=== PATIENT | female | born 1940 | race Caucasian/White ===

== ENCOUNTER 2017-12-25 09:00 | Inpatient (IN) ==
[2017-12-18 16:45] LABS: Appearance,Urine CLEAR; Bacteria,Urine 0 /hpf (0); Bilirubin,Urine NEG (NEG); Color,Urine YELLOW; Glucose,Urine (UA) NEGATIVE (NEG); Leukocyte Esterase,Urine NEG /uL (NEG); Mucus,Urine MOD /hpf (0); Protein,Urine 30 mg/dL (NEG); Specific Gravity,Urine 1.025 (1.000-1.035); Urine Blood NEG mg/dL (<0.03); Urine RBC 5 /hpf (0-1); Urine Squamous Epithelial Cell 2 /hpf (0-4); Urine Transitional Epi Cells 1 /hpf (0-2); Urine WBC 2 /hpf (0-4)
[2017-12-18 17:35] LABS: Blood Urea Nitrogen 25 mg/dl (8-23)
[2017-12-18 18:24] LABS: Basophils # (Auto) 0 K/mcL (0.0-0.3); Basophils % (Auto) 0.5 % (0.0-2.0); Eosinophils # (Auto) 0.1 K/mcL (0.0-0.7); Eosinophils % (Auto) 1.7 % (0.0-7.0); Granulocytes % (Auto) 75.7 % (38.0-78.0); Lymphocytes % (Auto) 12.5 % (15.5-49.0); Mean Cell Volume 79.2 fL (80.0-100.0); Mean Corpuscular HGB Conc 32.2 g/dL (31.0-36.0); Mean Corpuscular Hemoglobin 25.6 pg (26.0-34.0); Monocytes # (Auto) 0.8 K/mcL (0.1-0.9); Monocytes % (Auto) 9.6 % (1.0-12.0); Platelet Count 390 K/mcL (140-440); RBC 4.51 M/mcL (4.00-5.20); Red Cell Distribution Width 16.4 % (11.5-14.5)
[2017-12-18 19:28] LABS: Estimated Average Glucose(eAG) 151 mg/dL; Hemoglobin A1C 6.9 % HGB (4.0-6.0)
[~2017-12-25 09:00] MED LIST: CELECOXIB 200 MG CAPSULE PO SCH; PREGABALIN 75 MG CAPSULE PO SCH; oxyCODONE 10 MG TAB.ER.12H PO SCH
[2017-12-25] MEDS: 0.9 % SODIUM CHLORIDE 9 ML, KETOROLAC 30 MG, ROPIVACAINE HCL/PF 49.5 ML, EPINEPHrine 0.... IJ SCH ×2 (10:40→18:03)
[2017-12-25] MEDS: ceFAZolin 1 GM VIAL IV SCH ×3 (10:41→21:03)
[2017-12-25] MEDS ORDERED: PROPOFOL 200 MG/20 ML VIAL IV ONE (12:50)
[2017-12-25] MEDS ORDERED: PHENYLEPHRINE 10 MG/ML VIAL IV ONE (12:50)
[2017-12-25] MEDS ORDERED: MIDAZOLAM 5 MG/5 ML VIAL IV ONE (12:50)
[2017-12-25] MEDS ORDERED: GLYCOPYRROLATE 0.2 MG/ML VIAL IV ONE (12:50)
[2017-12-25] MEDS ORDERED: TRANEXAMIC ACID 1,000 MG/10 ML VIAL IV ONE ×2 (12:50→15:05)
[2017-12-25] MEDS ORDERED: LIDOCAINE HCL/PF 100 MG/5 ML SYRINGE IV ONE (12:50)
[2017-12-25] MEDS ORDERED: fentaNYL 100 MCG/2 ML VIAL IV ONE (12:50)
[2017-12-25] MEDS ORDERED: ONDANSETRON 4 MG/2 ML VIAL IV ONE (12:50)
[2017-12-25] MEDS ORDERED: diphenhydrAMINE 50 MG/ML VIAL IV PRN (13:59)
[2017-12-25] MEDS ORDERED: IPRATROPIUM/ALBUTEROL 3 ML AMPUL.NEB NEB PRN (13:59)
[2017-12-25] MEDS ORDERED: ACETAMINOPHEN 1,000 MG/100 ML BOTTLE IV ONE (13:59)
[2017-12-25] MEDS ORDERED: METOPROLOL TARTRATE 5 MG/5 ML VIAL IV PRN (13:59)
[2017-12-25] MEDS ORDERED: ATROPINE SULFATE 0.4 MG/ML VIAL IV PRN (13:59)
[2017-12-25] MEDS ORDERED: ePHEDrine 50 MG/ML AMPUL IV PRN (13:59)
[2017-12-25] MEDS ORDERED: FLUMAZENIL 0.1 MG/ML ML IV PRN (13:59)
[2017-12-25] MEDS ORDERED: MEPERIDINE 25 MG/ML SYRINGE IV PRN (13:59)
[2017-12-25] MEDS ORDERED: fentaNYL 100 MCG/2 ML VIAL IV PRN (13:59)
[2017-12-25] MEDS ORDERED: PROMETHAZINE 25 MG/ML VIAL IV PRN (13:59)
[2017-12-25] MEDS ORDERED: HYDROmorphone 2 MG/ML VIAL IV PRN (13:59)
[2017-12-25] MEDS ORDERED: ONDANSETRON 4 MG/2 ML VIAL IV PRN ×2 (13:59→14:26)
[2017-12-25] MEDS ORDERED: METHOCARBAMOL 1,000 MG/10 ML VIAL IV PRN (13:59)
[2017-12-25] MEDS ORDERED: NALOXONE HCL 0.4 MG/ML VIAL IV PRN (13:59)
[2017-12-25] MEDS ORDERED: LACTATED RINGERS 1,000 ML IV SCH (14:00)
--- NOTE | 2017-12-25 14:25 | Brief Operative Note ---
Date of procedure: 12/25/17 Pre-op diagnosis: R knee OA Post-op diagnosis: same Procedure: Right robotic assisted total knee arthroplasty Grafts/Implants: Yes Anesthesia: spinal, GLMA Findings: severe DJD Complications: none Surgeon: Tobias Barron Medical Superintendent: Iftikhar Camacho Estimated blood loss (cc): 30 Specimens Removed/Pathology: none sent Condition: stable Disposition: PACU
[2017-12-25] MEDS ORDERED: BISACODYL 10 MG SUPP.RECT PR PRN (14:26)
[2017-12-25] MEDS ORDERED: MAGNESIUM HYDROXIDE 30 ML ORAL.SUSP PO PRN (14:26)
[2017-12-25] MEDS ORDERED: TRANEXAMIC ACID 1,000 MG/10 ML VIAL IV SCH (14:26)
[2017-12-25] MEDS ORDERED: BENZOCAINE/MENTHOL 1 LOZENGE PO PRN (14:26)
[2017-12-25] MEDS ORDERED: FLEETS ADULT ENEMA PR PRN (14:26)
[2017-12-25] MEDS ORDERED: POLYETHYLENE GLYCOL 3350 17 GM PACKET PO PRN (14:26)
[2017-12-25] MEDS ORDERED: DEXTROSE 50% 50 ML VIAL IV PRN (14:30)
[2017-12-25] MEDS ORDERED: DEXTROSE 31 GM ORAL.SUSP PO PRN (14:30)
--- NOTE | 2017-12-25 15:09 | Operative Note ---
DATE OF OPERATION: 12/25/2017 PREOPERATIVE DIAGNOSIS: Right knee advanced osteoarthritis. POSTOPERATIVE DIAGNOSIS: Right knee advanced osteoarthritis. PROCEDURE PERFORMED: Right robotic-assisted total knee arthroplasty placing a Tae triathlon size 3 cruciate retaining femoral component, size 2 tibial baseplate with a 9 mm X3 tibial insert and a 33 mm patellar button. SURGEON: Tobias Barron MD [facility] DIRECTOR: Kana Camacho PA-C. ANESTHESIA: Spinal plus general. DRAINS: None. SPECIMENS: Bone cuts, which were discarded. BLOOD LOSS: 30 mL POSTOPERATIVE CONDITION: Stable. INDICATIONS FOR SURGERY: This is a 77-year-old female with worsening right knee pain. Radiographs showed [id number] arthritis. FINDINGS AT SURGERY: Showed [id number] arthritis with a severely degenerative torn medial meniscus. Post-procedure showed good limb alignment, patellar tracking, and joint stability. PROCEDURE IN DETAIL: The patient had been seen preoperatively. Informed consent had been obtained after discussion of risks, benefits of surgery. Risks including, but not limited to, bleeding, possibly requiring transfusion; infection, possibly requiring implant removal and prolonged IV antibiotics; injury to nerves, blood vessels, and other surrounding structures; anesthetic risks; incomplete or no resolution of symptoms; stiffness; pain; instability; DVT and pulmonary embolus risks; and the possibility of needing further revision surgery. She understood these risks and wished to proceed. Correct operative site was marked and the patient was taken to the operating room after spinal anesthesia was given. LMA general was given. The right lower extremity was then carefully prepped and draped in normal sterile fashion. A timeout was performed verifying patient name, operative site, and plan. Esmarch was used to exsanguinate the extremity and tourniquet was inflated. Midline incision was made with a scalpel through skin and subcutaneous tissue. IrriSept was irrigated and a medial parapatellar arthrotomy made. Subperiosteal exposure was done of the anterior medial tibia. Anterior horns of menisci were removed and the medial meniscus was noted to be severely torn. ACL was transected. Femoral and tibial checkpoints were placed. Two stab incisions were made over the tibia and two over the femur and bicortical pins placed and the arrays connected. We checked our hip center of rotation and then green probe used to identify medial and lateral malleoli and double check points. Blue probe was used to do our mapping. We then removed osteophytes and checked our flexion, extension gaps. Implants were adjusted so we had 17 mm gaps for all 4 numbers. We then used the robotic assistance to make our bone cuts. The tibia was sized to a 2, which was externally rotated as bone coverage would allow. The tibia was prepared and then posterior osteophytes removed. Trial components were placed and the knee was taken through range of motion and had good stability. The patella was measured and then freehand resected, sized to a 33 and post-resection showed within a millimeter within the implant trial. We went ahead and checked patellar tracking, which was good. We then opened implants. Trials were removed and antibiotic cement was mixed. We irrigated with IrriSept, after a minute pulse lavaged with saline and then used CO2 gun to clean the cancellous bone surfaces and then cemented the tibia followed by the femur and then a 9 insert trial placed. The knee was taken into extension. The patella was cemented. The joint was filled with IrriSept. We removed our checkpoints and removed our pins and arrays. We injected pain cocktail in the pericapsular and subcutaneous tissues. The leg was held in full extension until cement had fully hardened. We flexed the knee up, removed the trial and opened a 9 insert. We injected pain cocktail in the posterior capsule, then irrigated IrriSept and then impacted the 9 insert. We pulse lavaged with saline and then the knee was closed in 45 degrees of flexion. Interrupted [id number] #2 FiberWires were used around the superior quadrant of the patella, interrupted #1 Vicryl [id number] around the inferior quadrant, running #1 Vicryl for patellar tendon and quad tendon. Checkpoints had been removed prior to closure. Final IrriSept irrigation was done and then final pulse lavage and 2-0 Monocryl for subcutaneous and sadie for skin. Xeroform and sterile dressing applied. Tourniquet was released. The patient was awakened, extubated and transferred to recovery in stable condition. MORGAN:naren Job ID: [id number] Doc ID: [id number] Tobias Barron MD
--- NOTE | 2017-12-25 15:41 | XRay Report ---
HISTORY: Postop knee replacement FINDINGS: There is a well positioned total knee prosthesis. No fracture is present. Moderate amount of calcified plaque is present in the superficial femoral and popliteal arteries. IMPRESSION: Well-positioned right knee prosthesis Interpreted and Authenticated by: Albino Erwin 12/25/17
[2017-12-25] MEDS: 0.9 % SODIUM CHLORIDE 1,000 ML IV SCH (15:51)
[2017-12-25] MEDS: KETOROLAC 15 MG/ML VIAL IV SCH ×2 (18:00→23:49)
[2017-12-25] MEDS: INSULIN LISPRO 1 UNIT/0.01 ML UNIT SQ SCH ×2 (18:24→21:20)
[2017-12-25] MEDS ORDERED: SENNOSIDES 1 TABLET PO SCH (21:00)
[2017-12-25] MEDS: ASPIRIN 325 MG ENTERIC COATED TABLET PO SCH (21:02)
[2017-12-25] MEDS: DOCUSATE SODIUM 100 MG CAPSULE PO SCH (21:02)
[2017-12-25] MEDS: 0.9 % SODIUM CHLORIDE 10 ML SYRINGE IV SCH ×2 (21:06→21:13)
[2017-12-26] MEDS: 0.9 % SODIUM CHLORIDE 1,000 ML IV SCH (02:30)
[2017-12-26] MEDS: ceFAZolin 1 GM VIAL IV SCH (04:26)
[2017-12-26] MEDS: oxyCODONE/APAP 5/325MG TABLET PO PRN ×2 (04:27→11:21)
[2017-12-26] MEDS: KETOROLAC 15 MG/ML VIAL IV SCH (05:34)
[2017-12-26] MEDS: 0.9 % SODIUM CHLORIDE 10 ML SYRINGE IV SCH (05:42)
--- NOTE | 2017-12-26 07:52 | Discharge Summary ---
Providers - Providers Patient information: Note initiated : 12/26/17 at 7:48 am Service Date, if different from initiated Date: [] Patient: Fior Fontanez 77 y/o F admitted on 12/25/17 for Right Total Knee Arthroplasty James. Chief Complaint: [] Discharge date: 12/26/17 Hospitalization Hospital course: Pt was admitted for a TKA. Pt underwent the procedure on the day of admission and spent 1 night on the floor for IV pain meds, IV abx, and PT prior to home discharge. Pt will take ASA for DVT prophylaxis, attend out-pt PT and f/u at [facility] in 2 weeks. Discharge diagnosis: R Knee OA Exam - Exam Clean and dry: Yes Weight bearing status: as tolerated Ortho Discharge - TKA - Patient Instructions Diet: Regular Diet Activity: activity as tolerated Total Knee Protocol: For Total Knee: Start ROM JULIA with stationary bike or rocking chair. Work on gaining full extension of knee. Posterior dislocation precautions provided. Hip abductor strengthening and gait training instructions provided. Apply Cryocuff as instructed. Dressing Care: May shower in 2 days - Follow Up Plan Disposition: Home, Self-Care Prognosis: Good Rehab Potential: Good Overall status at discharge: patient is progressing back to baseline - Orders For Discharge Prescriptions: Aspirin [Ecotrin] 325 mg PO BID #30 tab.ec HYDROcodone/ACETAMINOPHEN [Hydrocodon-Acetaminophn 10-325] 1 - 2 each PO Q4-6HP PRN #90 tab PRN Reason: Pain Pending Studies Resuscitation Status Full Code Diet Consistent Carbohydrate Diet Start SatDec 25 1431 Aspirin (Ecotrin) 325 mg PO BID [facility] Last Admin: 12/25/17 21:02 Dose: 325 mg Diagnostic Test (Pha) (Accu-Chek) 1 each FS ACHS [facility] Last Admin: 12/25/17 21:01 Dose: 1 each Admin: 12/25/17 18:00 Dose: 1 each Docusate Sodium (Colace) 100 mg PO BID [facility] Last Admin: 12/25/17 21:02 Dose: 100 mg Sodium Chloride (Sodium Chloride 0.9%) 1,000 mls @ 100 mls/hr IV .Q10H [facility] Last Admin: 12/26/17 02:30 Dose: 100 mls/hr Infusion: 12/26/17 02:00 Dose: 0 mls/hr Admin: 12/25/17 15:51 Dose: 100 mls/hr Insulin Human Lispro (Humalog) 0 unit SQ ACHS [facility]; Protocol Last Admin: 12/25/17 21:20 Dose: 2 unit Admin: 12/25/17 18:24 Dose: 2 unit Ketorolac Tromethamine (Toradol) 15 mg IV Q6 [facility] Stop: 12/27/17 12:01 Last Admin: 12/26/17 05:34 Dose: 15 mg Admin: 12/25/17 23:49 Dose: 15 mg Admin: 12/25/17 18:00 Dose: 15 mg Morphine Sulfate (Morphine) 0 mg IV Q1HP PRN PRN Reason: PAIN LEVEL > 6 Last Admin: 12/26/17 05:56 Dose: 2 mg Admin: 12/25/17 15:51 Dose: 2 mg Oxycodone/Acetaminophen (Percocet 5-325 Mg) 0 tab PO Q4HP PRN PRN Reason: PAIN LEVEL 3-6 Last Admin: 12/26/17 04:27 Dose: 2 tab Senna (Senokot) 2 tab PO HS [facility] Last Admin: 12/25/17 21:02 Dose: 2 tab Sodium Chloride (Saline Flush) 10 ml IV Q8 [facility] Last Admin: 12/26/17 05:42 Dose: Not Given Admin: 12/25/17 21:13 Dose: Not Given Shift Summary 12/26/17 05:19 Shift Summary by Michelle Alcaraz. Pulse in 48-upper 60s range tonight. Oxygen in low 90's on 2L O2 via NC. A& Ox4. Heart rhythm regular. Denies dizziness/discomfort. 10mg PO Percocet given for 3/10 pain rating approx. 0420. Using ice intermittently. Up to BSC to void. IV to L FA running NS 0.9% at 100mls/hr. Dressing to right knee C/D/I. Pedal pulse palpable, foot warm, cap refill <3 seconds. Initialized on 12/26/17 05:19 - END OF NOTE
[2017-12-26] MEDS ORDERED: metFORMIN 500 MG TABLET PO SCH (08:00)
[2017-12-26] MEDS: INSULIN LISPRO 1 UNIT/0.01 ML UNIT SQ SCH (08:05)
[2017-12-26] MEDS: ASPIRIN 325 MG ENTERIC COATED TABLET PO SCH (08:06)
[2017-12-26] MEDS: DOCUSATE SODIUM 100 MG CAPSULE PO SCH (08:06)
[2017-12-26] MEDS ORDERED: LOSARTAN 50 MG TABLET PO SCH (09:00)
[2017-12-26] MEDS ORDERED: FLU VACC QS2017-18 36MOS UP/PF 60 MCG/0.5 ML SYRINGE IM ONE (10:00)
[2017-12-26] MEDS ORDERED: PNEUMOCOCCAL 23-VAL P-SAC VAC 0.5 ML VIAL IM ONE (10:15)
== END 2017-12-26 12:30 | disposition home or self-care (01) | DRG 470 ==
LOC: MEDSUR 09:00
PROVIDERS: ADMIT Orthopaedic Surgery; ATTEND Orthopaedic Surgery
CPT/HCPCS: 62322; 90686; 97161; 90732; C1713; C1776; J0131; J0690; J1817; J1885; J2001; J2250; J2270; J2370; J2405; J3010; J7030; J7040; J7120

== ENCOUNTER 2017-12-28 15:48 | Inpatient (IN) ==
[2017-12-28] MEDS ORDERED: IOPAMIDOL 100 ML BOTTLE IV ONE (15:49)
--- NOTE | 2017-12-28 16:16 | Emergency Department Note ---
Extremity Problem HPI - General Chief complaint: Extremity Problem,Nontraumatic Stated complaint: Right Knee Redness and swelling after total knee Time Seen by Provider: 12/28/17 15:58 Source: patient, family Mode of arrival: ambulatory Limitations: no limitations - History of Present Illness HPI Narrative: Fior is a 77-year-old female presents to the emergency department this evening with right knee redness, warmth, drainage, and swelling that she noticed yesterday. She recently had right knee surgery performed by Dr. Barron 3 days ago. She reports that she noticed the swelling, increased drainage, warmth, and redness yesterday and reports a fever of 101. She has been taking daily aspirin along with her regular medications that include losartan and metformin. She has been using Percocet for pain. She denies numbness or tingling. She reports that she has been using ice to her knee several times a day. - Related Data Home Medications Medication Instructions Recorded Confirmed Cyanocobalamin (Vitamin B-12) 1,000 mcg PO DAILY 12/18/17 12/28/17 [Vitamin B-12] Losartan [Cozaar] 100 mg PO DAILY 12/18/17 12/28/17 metFORMIN [Glucophage] 500 mg PO QAMCC 12/18/17 12/28/17 oxyCODONE HCL/ACETAMINOPHEN 1 each PO Q4HP PRN 12/28/17 12/28/17 [Percocet 5-325 mg Tablet] Previous Rx's Medication Instructions Recorded Aspirin [Ecotrin] 325 mg PO BID #30 tab.ec 12/26/17 Allergies Allergy/AdvReac Type Severity Reaction Status Date / Time Erythromycin Base AdvReac Mild Nausea Verified 12/28/17 15:53 Review of Systems All systems ED: reviewed and negative except as stated. Past Medical History - Past Medical History Medical history: Reports: DM, hypertension - Social History smoking status: Former smoker Physical Exam Limitations: no limitations General appearance: alert, in no apparent distress Eye: Present: normal appearance, PERRL, EOMI ENT: normal oropharynx, mucous membranes moist Chest: Present: normal inspection, symmetric chest wall rise. Absent: tenderness Respiratory: Present: other (No respiratory distress. Respirations even and unlabored. Crackles right and left lower lobe. All other culver are clear to auscultate.) Cardiovascular: Present: regular rate, normal rhythm, +S1, +S2. Absent: systolic murmur, diastolic murmur Knee: Present: other (Right knee has full range of motion. There is a vertical surgical incision held together with sadie. Erythema of the entire knee. The knee is warm to the touch and small amount of serous drainage is seen. Pedal pulse 2+. Sensation normal. Capillary refill less than 3 seconds. ) Neurological: Present: alert, oriented X3 Psychiatric: Present: normal affect, normal mood Course - Reevaluation(s) Time: 18:27 (Patient is requiring O2 here in the emergency department and a chest x-ray shows larger vessels on the right side will order the CTA of chest to check for pulmonary embolism.) Time: 20:10 (Spoke with Dr. Peterson about the patient this evening and reported the assessment findings as well as labs and CT results. Dr. Peterson recommended to treat the right knee locally for infection and did not suspect that infection consultation from surgery would be seen this soon, and didn't recommend further antibiotics and follow up with Dr. Barron on Saturday.) Time: 20:35 (Spoke with Dr. Garcia who will admit patient for hypoxia. Synovial fluid analysis ordered to see what the WBC count is. ) Vital Signs Temperature 98.7 F 12/28/17 15:50 Pulse Rate 91 H 12/28/17 15:50 Respiratory Rate 16 12/28/17 15:50 Blood Pressure 190/92 12/28/17 15:50 Pulse Oximetry (%) 91 12/28/17 15:50 Temperature 98.5 F 12/28/17 18:17 Pulse Rate 88 12/28/17 20:57 Respiratory Rate 19 12/28/17 20:57 Blood Pressure 168/91 12/28/17 20:47 Pulse Oximetry (%) 93 12/28/17 20:57 Extremity Problem, Nontraumati - MDM Narrative Medical decision making narrative: Patient was requiring oxygen here in the emergency department to maintain oxygen saturations. CT of chest did show emphysema without any pulmonary embolism. Synovial fluid analysis with crystals and cell count pending. Patient has leukocytosis and blood cultures are pending. Patient was given 1 g Rocephin IV and 1 L normal saline here in the emergency department. She was given 62.5 mg of Solu-Medrol and DuoNeb treatment. She was requiring 2-3 L O2 via nasal cannula here. She will be admitted to [facility] for COPD exacerbation. - Lab Data Result diagrams: 12/28/17 16:47 12/28/17 16:47 Lab Results 12/28/17 12/28/17 12/28/17 Range/Units 16:40 16:47 16:47 WBC 12.3 H (4.5-11.0) K/mcL RBC 4.11 (4.00-5.20) M/mcL Hgb 10.7 L (12.0-15.0) g/dL Hct 32.6 L (36.0-48.0) % MCV 79.4 L (80.0-100.0) fL MCH 26.0 (26.0-34.0) pg MCHC 32.8 (31.0-36.0) g/dL RDW 16.9 H (11.5-14.5) % Plt Count 389 (140-440) K/mcL MPV 7.9 (7.4-10.4) fL Gran % 80.7 H (38.0-78.0) % Lymph % (Auto) 9.2 L (15.5-49.0) % Sampson % (Auto) 9.4 (1.0-12.0) % Eos % (Auto) 0.4 (0.0-7.0) % Baso % (Auto) 0.3 (0.0-2.0) % Gran # 9.9 H (1.8-8.0) K/mcL Lymph # (Auto) 1.1 L (1.5-4.8) K/mcL Sampson # (Auto) 1.2 H (0.1-0.9) K/mcL Eos # (Auto) 0 (0.0-0.7) K/mcL Baso # (Auto) 0 (0.0-0.3) K/mcL ESR 106 H (0-20) mm/hr D-Dimer 3.05 H (0.00-0.40) ug/ml VBG Lactic Acid (0.5-2.2) mmol/L Sodium 134 (133-145) mmol/L Potassium 3.8 (3.3-5.1) mmol/L Chloride 96 (96-108) mmol/L Carbon Dioxide 24 (22-30) mmol/L Anion Gap 14.0 (8-16) BUN 16 (8-23) mg/dl Creatinine 1.0 (0.6-1.1) mg/dl GFR Calculation 55 Glucose 111 H (70-105) mg/dL Calcium 8.6 (8.6-10.4) mg/dl Total Bilirubin 0.3 (0.0-1.0) mg/dL AST 35 (0-37) U/l ALT 22 (0-40) U/l Alkaline Phosphatase 107 (39-117) U/L NT-Pro-B Natriuret Pep (0-450) pg/ml Total Protein 6.8 (5.9-8.4) gm/dL Albumin 3.2 (3.2-5.2) gm/dL Globulin 3.6 (2.2-3.7) gm/dL Albumin/Globulin Ratio 0.9 L (1.0-2.3) Synovial Tot Cell Ct Synovial Lymphocytes Synovial Other Cells Synovial Diff Comment 12/28/17 12/28/17 12/28/17 Range/Units 16:47 16:48 16:59 WBC (4.5-11.0) K/mcL RBC (4.00-5.20) M/mcL Hgb (12.0-15.0) g/dL Hct (36.0-48.0) % MCV (80.0-100.0) fL MCH (26.0-34.0) pg MCHC (31.0-36.0) g/dL RDW (11.5-14.5) % Plt Count (140-440) K/mcL MPV (7.4-10.4) fL Gran % (38.0-78.0) % Lymph % (Auto) (15.5-49.0) % Sampson % (Auto) (1.0-12.0) % Eos % (Auto) (0.0-7.0) % Baso % (Auto) (0.0-2.0) % Gran # (1.8-8.0) K/mcL Lymph # (Auto) (1.5-4.8) K/mcL Sampson # (Auto) (0.1-0.9) K/mcL Eos # (Auto) (0.0-0.7) K/mcL Baso # (Auto) (0.0-0.3) K/mcL ESR (0-20) mm/hr D-Dimer (0.00-0.40) ug/ml VBG Lactic Acid 1.2 (0.5-2.2) mmol/L Sodium (133-145) mmol/L Potassium (3.3-5.1) mmol/L Chloride (96-108) mmol/L Carbon Dioxide (22-30) mmol/L Anion Gap (8-16) BUN (8-23) mg/dl Creatinine (0.6-1.1) mg/dl GFR Calculation Glucose (70-105) mg/dL Calcium (8.6-10.4) mg/dl Total Bilirubin (0.0-1.0) mg/dL AST (0-37) U/l ALT (0-40) U/l Alkaline Phosphatase (39-117) U/L NT-Pro-B Natriuret Pep 7360.0 H (0-450) pg/ml Total Protein (5.9-8.4) gm/dL Albumin (3.2-5.2) gm/dL Globulin (2.2-3.7) gm/dL Albumin/Globulin Ratio (1.0-2.3) Synovial Tot Cell Ct Not Reportable Synovial Lymphocytes Not Reportable Synovial Other Cells Not Reportable Synovial Diff Comment Not Reportable - Radiology Data Radiology results reviewed: Yes I reviewed the patient's radiology results. Spoke with Dr. Erwin at [address] who read the chest CT that showed no pulmonary embolism, moderate emphysema, small amount of atelectasis, cardiomegaly, and some fatty liver. Disposition Pt seen by CERTIFIED NURSE OPERATING ROOM/PA only: No (Dr. Covington) Clinical Impression: COPD exacerbation Disposition: Xfer As Inpt ([facility]) Condition: Fair Referrals: Jerry Mo DO [Primary Care Provider] -
[2017-12-28] MEDS ORDERED: 0.9 % SODIUM CHLORIDE 1,000 ML IV ONE (16:39)
[2017-12-28] MEDS ORDERED: PIPERACILLIN SODIUM/TAZOBACTAM 3.375 GM in DEXTROSE 5% IN WATER 50 ML IV ONE (16:55)
[2017-12-28] MEDS ORDERED: cefTRIAXone 1 GM VIAL IV ONE (17:05)
[2017-12-28 17:27] LABS: Basophils # (Auto) 0 K/mcL (0.0-0.3); Basophils % (Auto) 0.3 % (0.0-2.0); Eosinophils # (Auto) 0 K/mcL (0.0-0.7); Eosinophils % (Auto) 0.4 % (0.0-7.0); Granulocytes % (Auto) 80.7 % (38.0-78.0); Lymphocytes # (Auto) 1.1 K/mcL (1.5-4.8); Lymphocytes % (Auto) 9.2 % (15.5-49.0); Mean Cell Volume 79.4 fL (80.0-100.0); Mean Corpuscular HGB Conc 32.8 g/dL (31.0-36.0); Monocytes # (Auto) 1.2 K/mcL (0.1-0.9); Monocytes % (Auto) 9.4 % (1.0-12.0); Platelet Count 389 K/mcL (140-440); RBC 4.11 M/mcL (4.00-5.20); Red Cell Distribution Width 16.9 % (11.5-14.5)
[2017-12-28 17:51] LABS: ALT/SGPT 22 U/l (0-40); Albumin 3.2 gm/dL (3.2-5.2); Albumin/Globulin Ratio 0.9 (1.0-2.3); Alkaline Phosphatase 107 U/L (39-117); Blood Urea Nitrogen 16 mg/dl (8-23)
[2017-12-28 18:20] LABS: Erythrocyte Sedimentation Rate 106 mm/hr (0-20)
--- NOTE | 2017-12-28 19:13 | Emergency Department Note ---
Extremity Problem HPI - General Source: patient, family Mode of arrival: ambulatory Limitations: no limitations <Larry Covington - Last Filed: 12/28/17 19:08> <Tal Tucker - Last Filed: 12/28/17 21:10> - General Chief complaint: Extremity Problem,Nontraumatic Stated complaint: Right Knee Redness and swelling after total knee Time Seen by Provider: 12/28/17 15:58 - History of Present Illness HPI Narrative: I saw this patient with Tal WIN. I agree with his evaluation management documentation (Larry Covington) - Related Data Home Medications Medication Instructions Recorded Confirmed Cyanocobalamin (Vitamin B-12) 1,000 mcg PO DAILY 12/18/17 12/28/17 [Vitamin B-12] Losartan [Cozaar] 100 mg PO DAILY 12/18/17 12/28/17 metFORMIN [Glucophage] 500 mg PO QAMCC 12/18/17 12/28/17 oxyCODONE HCL/ACETAMINOPHEN 1 each PO Q4HP PRN 12/28/17 12/28/17 [Percocet 5-325 mg Tablet] Previous Rx's Medication Instructions Recorded Aspirin [Ecotrin] 325 mg PO BID #30 tab.ec 12/26/17 Allergies Allergy/AdvReac Type Severity Reaction Status Date / Time Erythromycin Base AdvReac Mild Nausea Verified 12/28/17 15:53 Past Medical History - Past Medical History Medical history: Reports: DM, hypertension - Social History smoking status: Former smoker <Larry Covington - Last Filed: 12/28/17 19:08> Physical Exam Limitations: no limitations General appearance: alert, in no apparent distress <Larry Covington - Last Filed: 12/28/17 19:08> Course - Reevaluation(s) Time: 20:10 (spoke with Dr. Peterson about the patient his evening and reported the assessment findings as well as labs and CT results. Dr. Cifuentes recommended to treat the right knee locally for infection and did not suspect that infection complication from surgery would be seen this soon and didn't recommend further antibiotics and follow up with Dr. Barron Saturday. ) <Tal Tucker - Last Filed: 12/28/17 21:10> Vital Signs Temperature 98.7 F 12/28/17 15:50 Pulse Rate 91 H 12/28/17 15:50 Respiratory Rate 16 12/28/17 15:50 Blood Pressure 190/92 12/28/17 15:50 Pulse Oximetry (%) 91 12/28/17 15:50 Temperature 98.5 F 12/28/17 18:17 Pulse Rate 88 12/28/17 20:57 Respiratory Rate 19 12/28/17 20:57 Blood Pressure 168/91 12/28/17 20:47 Pulse Oximetry (%) 93 12/28/17 20:57 Procedures - Joint Aspiration/Injection Joint Aspiration/Injection 1 Consent Obtained: verbal consent Time Out Performed: No Side of body: right Joint Aspirated: knee Ultrasound Guidance: No Skin Prep: Povidone-Iodine1% Local Anesthetic: lidocaine 1% Amount of anesthesia used (mL): 12 Needle Size Used: 22G Fluid Obtained: bloody Total Fluid Obtained (mls): 3 Patient Tolerated Procedure: well Complications: none <Larry Covington - Last Filed: 12/28/17 19:08> <Tal Tucker - Last Filed: 12/28/17 21:10> - Joint Aspiration/Injection Joint Aspiration/Injection 1 Additional Comments: As interventional radiology was not available we proceeded with aspiration of the right knee joint for culture because it was red and edematous. I did the procedure with Tal WIN assisting. First cleaned off the inferior lateral portion of her knee with sterile alcohol prep. I then infiltrated with about 5 cc of lidocaine 1% without epinephrine. Using sterile gloves I used a 22-gauge spinal needle to try to get into the knee capsule but I was not able to get into the knee joint because of positioning. Her anatomy is difficult because her knee is red and swollen status post recent surgery, likely infected. I then tried at the medial inferior portion after infiltrating with another 5 cc of lidocaine without epinephrine. I was able to get into the knee joint the third try at that inferior medial portion-I used a new 22-gauge spinal needle each time; again this was necessary to get cultures but was difficult secondary to distorted anatomy from surgery and edema. Obtained 3 mL bloody red fluid. Sent fluid to laboratory. Tolerated well. Used a total of approximately 12 mL of lidocaine without epinephrine (Larry Covington) Extremity Problem, Nontraumati - Lab Data Result diagrams: 12/28/17 16:47 12/28/17 16:47 <Larry Covington - Last Filed: 12/28/17 19:08> - Lab Data Result diagrams: 12/28/17 16:47 12/28/17 16:47 <Tal Tucker - Last Filed: 12/28/17 21:10> - Lab Data Lab Results 12/28/17 12/28/17 12/28/17 Range/Units 16:40 16:47 16:47 WBC 12.3 H (4.5-11.0) K/mcL RBC 4.11 (4.00-5.20) M/mcL Hgb 10.7 L (12.0-15.0) g/dL Hct 32.6 L (36.0-48.0) % MCV 79.4 L (80.0-100.0) fL MCH 26.0 (26.0-34.0) pg MCHC 32.8 (31.0-36.0) g/dL RDW 16.9 H (11.5-14.5) % Plt Count 389 (140-440) K/mcL MPV 7.9 (7.4-10.4) fL Gran % 80.7 H (38.0-78.0) % Lymph % (Auto) 9.2 L (15.5-49.0) % Chase % (Auto) 9.4 (1.0-12.0) % Eos % (Auto) 0.4 (0.0-7.0) % Baso % (Auto) 0.3 (0.0-2.0) % Gran # 9.9 H (1.8-8.0) K/mcL Lymph # (Auto) 1.1 L (1.5-4.8) K/mcL Chase # (Auto) 1.2 H (0.1-0.9) K/mcL Eos # (Auto) 0 (0.0-0.7) K/mcL Baso # (Auto) 0 (0.0-0.3) K/mcL ESR 106 H (0-20) mm/hr D-Dimer 3.05 H (0.00-0.40) ug/ml VBG Lactic Acid (0.5-2.2) mmol/L Sodium 134 (133-145) mmol/L Potassium 3.8 (3.3-5.1) mmol/L Chloride 96 (96-108) mmol/L Carbon Dioxide 24 (22-30) mmol/L Anion Gap 14.0 (8-16) BUN 16 (8-23) mg/dl Creatinine 1.0 (0.6-1.1) mg/dl GFR Calculation 55 Glucose 111 H (70-105) mg/dL Calcium 8.6 (8.6-10.4) mg/dl Total Bilirubin 0.3 (0.0-1.0) mg/dL AST 35 (0-37) U/l ALT 22 (0-40) U/l Alkaline Phosphatase 107 (39-117) U/L NT-Pro-B Natriuret Pep (0-450) pg/ml Total Protein 6.8 (5.9-8.4) gm/dL Albumin 3.2 (3.2-5.2) gm/dL Globulin 3.6 (2.2-3.7) gm/dL Albumin/Globulin Ratio 0.9 L (1.0-2.3) Synovial Tot Cell Ct Synovial Lymphocytes Synovial Other Cells Synovial Diff Comment 12/28/17 12/28/17 12/28/17 Range/Units 16:47 16:48 16:59 WBC (4.5-11.0) K/mcL RBC (4.00-5.20) M/mcL Hgb (12.0-15.0) g/dL Hct (36.0-48.0) % MCV (80.0-100.0) fL MCH (26.0-34.0) pg MCHC (31.0-36.0) g/dL RDW (11.5-14.5) % Plt Count (140-440) K/mcL MPV (7.4-10.4) fL Gran % (38.0-78.0) % Lymph % (Auto) (15.5-49.0) % Chase % (Auto) (1.0-12.0) % Eos % (Auto) (0.0-7.0) % Baso % (Auto) (0.0-2.0) % Gran # (1.8-8.0) K/mcL Lymph # (Auto) (1.5-4.8) K/mcL Chase # (Auto) (0.1-0.9) K/mcL Eos # (Auto) (0.0-0.7) K/mcL Baso # (Auto) (0.0-0.3) K/mcL ESR (0-20) mm/hr D-Dimer (0.00-0.40) ug/ml VBG Lactic Acid 1.2 (0.5-2.2) mmol/L Sodium (133-145) mmol/L Potassium (3.3-5.1) mmol/L Chloride (96-108) mmol/L Carbon Dioxide (22-30) mmol/L Anion Gap (8-16) BUN (8-23) mg/dl Creatinine (0.6-1.1) mg/dl GFR Calculation Glucose (70-105) mg/dL Calcium (8.6-10.4) mg/dl Total Bilirubin (0.0-1.0) mg/dL AST (0-37) U/l ALT (0-40) U/l Alkaline Phosphatase (39-117) U/L NT-Pro-B Natriuret Pep 7360.0 H (0-450) pg/ml Total Protein (5.9-8.4) gm/dL Albumin (3.2-5.2) gm/dL Globulin (2.2-3.7) gm/dL Albumin/Globulin Ratio (1.0-2.3) Synovial Tot Cell Ct Not Reportable Synovial Lymphocytes Not Reportable Synovial Other Cells Not Reportable Synovial Diff Comment Not Reportable Disposition Pt seen by STEAMBOAT INSPECTOR/PA only: No <Larry Covington - Last Filed: 12/28/17 19:08> Pt seen by STEAMBOAT INSPECTOR/PA only: No (Dr. Covington) <Tal Tucker - Last Filed: 12/28/17 21:10> Clinical Impression: COPD exacerbation Disposition: Xfer As Inpt ([facility]) Condition: Fair Referrals: Jerry Mo DO [Primary Care Provider] -
[2017-12-28] MEDS ORDERED: methylPREDNISolone SOD SUCC 125 MG/2 ML VIAL IV ONE (19:48)
[2017-12-28] MEDS ORDERED: IPRATROPIUM/ALBUTEROL 3 ML AMPUL.NEB NEB ONE (19:48)
[2017-12-28] MEDS ORDERED: oxyCODONE/APAP 5/325MG TABLET PO ONE (20:19)
[2017-12-28] MEDS ORDERED: CEFEPIME 2 GM VIAL IV SCH (21:56)
[2017-12-28] MEDS ORDERED: VANCOMYCIN PER PHARMACY IV ONE (21:56)
[2017-12-28] MEDS ORDERED: HYDROmorphone 2 MG/ML VIAL IV PRN (21:56)
[2017-12-28] MEDS ORDERED: ONDANSETRON 4 MG/2 ML VIAL IV PRN (21:56)
[2017-12-28] MEDS ORDERED: NALOXONE HCL 0.4 MG/ML VIAL IV PRN (21:56)
[2017-12-28] MEDS ORDERED: VANCOMYCIN 1,500 MG in 0.9 % SODIUM CHLORIDE 500 ML IV ONE (21:56)
[2017-12-28] MEDS ORDERED: VANCOMYCIN PER PHARMACY IV SCH (22:15)
[2017-12-28] MEDS ORDERED: VANCOMYCIN 1,000 MG in 0.9 % SODIUM CHLORIDE 250 ML IV ONE (22:15)
[2017-12-28 22:22] LABS: Appearance,Synovial Fluid BLOODY; Color,Synovial Fluid RED; Lymphocytes,Synovial Fluid 1 %; Neutrophils,Synovial Fluid 94 % (0-25); Other Cells,Synovial Fluid 5 %
--- NOTE | 2017-12-28 22:29 | Internal Med History&Physical ---
Medical - H&P: HPI Patient information: Note initiated : 12/28/17 at 10:29 pm Service Date, if different from initiated Date: [] Patient: Fior Fontanez a 77 y/o F admitted on 12/28/17 for Right Knee Redness and swelling after total knee. Chief Complaint: [] History of present illness: Ms. Fontanez is a 77 year old F with h/o DM, recent knee replacement surgery by Dr Barron, discahrged 2 days ago from this hospital, comes to the ER for evaluaton of right knee pain, drainage, subjective sensation of fever and chills. The patient notes that after surgery she was initially doing well, able to walk better, but today noticed some drainage coming from the right knee, initially was clear, but then bloodly, associated with knee swelling, subjective sensation of fevers. She also admits to having shortness of breath on exertion. She came to the ER for further evaluation. In the ER on the patient presented with low-grade temperature of 99.1, heart rate 84 blood pressure normal respirations normal she was saturating around 90- 92% needing 3 L of oxygen. Lab work showed elevated WBC count at 12.3 hemoglobin 10.7 MCV 79 platelets 389. Electrolytes stable creatinine 1.0 BNP elevated at 7360. ESR is 106. D-dimer was elevated at 3.05 lactic acid 1.2. Given elevation of d-dimer patient had a CT scan to rule out pulmonary embolism. There is no evidence of PE as per preliminary report. Patient does have significant emphysema. Dr. Cifuentes was contacted with regards to his knee swelling, Gram stain was negative for any organisms but did show some polymorphonuclear cells. It is my understanding that he said that the patient has likely cellulitis. However he was likely unaware of the patient's synovial fluid counts as they were not ordered. The patient has synovial fluid counts-14,329 WBCs. 94% neutrophils. Few CPPD crystals ABG that was done showed shows pH of 7.45 PCO2 39 PO2 50. Given hypoxia the patient was admitted to medicine for further management. All systems: reviewed and no additional remarkable complaints except as stated ( as per HPI rest neg) Medical - H&P: PMH Medical history: Diabetes Hypertension Emphysema Osteoarthritis Pertinent family history: Father with history of coronary artery disease Social history: Sf-owaree-08-pack-year history of smoking quit 7 years ago Social EtOH Denies recreational use of drugs Medical - H&P: Meds Home Medications Medication Instructions Recorded Confirmed Type Cyanocobalamin (Vitamin B-12) 1,000 mcg PO DAILY 12/18/17 12/28/17 History [Vitamin B-12] Losartan [Cozaar] 100 mg PO DAILY 12/18/17 12/28/17 History metFORMIN [Glucophage] 500 mg PO QAC 12/18/17 12/28/17 History Aspirin [Ecotrin] 325 mg PO BID #30 tab.ec 12/26/17 12/28/17 Rx oxyCODONE HCL/ACETAMINOPHEN 1 each PO Q4HP PRN 12/28/17 12/28/17 History [Percocet 5-325 mg Tablet] Allergies Allergy/AdvReac Type Severity Reaction Status Date / Time Erythromycin Base AdvReac Mild Nausea Verified 12/28/17 15:53 hydrocodone AdvReac Mild Nausea Verified 12/28/17 23:00 Medical - H&P: Exam - Constitutional Vitals: Temp Pulse Resp BP Pulse Ox 98.5 F 88 21 146/65 96 12/28/17 22:15 12/28/17 22:15 12/28/17 22:15 12/28/17 22:15 12/28/17 22:15 Exam: GENERAL: The patient is a well-developed, well-nourished in no apparent distress. Is alert and oriented x3. VITAL SIGNS: Reviewed and as noted elsewhere. HEENT: Head is normocephalic and atraumatic. Extraocular muscles are intact. Pupils are equal, round, and reactive to light. Nares appeared normal. Mouth appears any without lesions. Mucous membranes are moist. NECK: Normal to inspection, Supple, No lymphadenopathy or thyromegaly. LUNGS: Air entry equal on both sides, no wheezing,very mild basilar crackles or rhonchi noted. No accessory muscles of respiration HEART: Regular rate and rhythm normal, S1 and S2 heard, no Gallop, S3 or Rub Noted, No Gross murmur heard. ABDOMEN: Soft, nontender, and nondistended. Positive bowel sounds. No hepatosplenomegaly was noted. EXTREMITIES: No cyanosis, clubbing, rash, lesions or edema. NEUROLOGIC: Cranial nerves II through XII are grossly intact. Motor and Sensory System Grossly Intact PSYCHIATRIC: Normal affect, Normal Mood. Appropriate Behavior. SKIN: No ulceration or wounds noted, No jaundice, No rash noted. Right knee- swollen , erythematous, presences of moderate effusion. warm to touch. 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 Confounder is a few CPPD crystals. The patient denies any history of gout or pseudogout. She has elevated ESR of 107. I would consider this a septic arthritis at this time. Cultures have been sent, patient has been started on vancomycin and cefepime. Infectious disease to be consulted. Hypoxia-at this time it is difficult to know if this is acute hypoxia chronic hypoxia, reviewing the previous admission the patient was requiring oxygen then 2. Patient does have shortness of breath on exertion however on exam has no wheezing, no significant fluid noted on CT scan or chest x-ray. Continue duo nebs every 4-6 hours. Prednisone 40 mg daily. Patient will likely need oxygen for the long-term. She has a significant history of smoking. Diabetes-hold oral diabetes meds sliding scale insulin for glucose control Hypertension-continue home blood pressure medications DVT prophylaxis-heparin subcutaneous Full code Carb consistent diet-n.p.o. midnight for today
[2017-12-28] MEDS: IPRATROPIUM/ALBUTEROL 3 ML AMPUL.NEB NEB SCH (22:43)
[2017-12-28] MEDS ORDERED: DEXTROSE 50% 50 ML VIAL IV PRN (23:11)
[2017-12-28] MEDS ORDERED: DEXTROSE 31 GM ORAL.SUSP PO PRN (23:11)
[2017-12-28] MEDS: LACTATED RINGERS 1,000 ML IV SCH (23:31)
[2017-12-28] MEDS: 0.9 % SODIUM CHLORIDE 10 ML SYRINGE IV SCH (23:31)
[2017-12-28] MEDS: HEPARIN 5,000 UNIT/ML VIAL SQ SCH (23:38)
[2017-12-28] MEDS: SENNOSIDES 1 TABLET PO SCH (23:38)
[2017-12-29] MEDS: IPRATROPIUM/ALBUTEROL 3 ML AMPUL.NEB NEB SCH ×6 (03:43→22:20)
[2017-12-29] MEDS: 0.9 % SODIUM CHLORIDE 10 ML SYRINGE IV SCH ×3 (04:27→22:10)
[2017-12-29 06:08] LABS: Basophils # (Auto) 0 K/mcL (0.0-0.3); Basophils % (Auto) 0 % (0.0-2.0); Eosinophils # (Auto) 0 K/mcL (0.0-0.7); Eosinophils % (Auto) 0 % (0.0-7.0); Granulocytes % (Auto) 93.7 % (38.0-78.0); Lymphocytes # (Auto) 0.4 K/mcL (1.5-4.8); Lymphocytes % (Auto) 4.1 % (15.5-49.0); Mean Cell Volume 78.8 fL (80.0-100.0); Mean Corpuscular HGB Conc 32.4 g/dL (31.0-36.0); Mean Corpuscular Hemoglobin 25.5 pg (26.0-34.0); Monocytes # (Auto) 0.2 K/mcL (0.1-0.9); Monocytes % (Auto) 2.2 % (1.0-12.0); Platelet Count 301 K/mcL (140-440); RBC 3.63 M/mcL (4.00-5.20); Red Cell Distribution Width 16.5 % (11.5-14.5)
[2017-12-29] MEDS ORDERED: MAGNESIUM HYDROXIDE 30 ML ORAL.SUSP PO PRN (06:37)
[2017-12-29] MEDS ORDERED: BISACODYL 10 MG SUPP.RECT PR PRN (06:37)
[2017-12-29] MEDS ORDERED: FLEETS ADULT ENEMA PR PRN (06:37)
[2017-12-29 07:01] LABS: ALT/SGPT 19 U/l (0-40); Albumin 2.8 gm/dL (3.2-5.2); Albumin/Globulin Ratio 0.8 (1.0-2.3); Alkaline Phosphatase 95 U/L (39-117); Bilirubin,Direct < 0.2 mg/dL (0.0-0.3); Blood Urea Nitrogen 15 mg/dl (8-23); Gamma Glutamyl Transpeptidase 27 U/L (5-36); Uric Acid 4.1 mg/dL (2.5-8.0)
[2017-12-29] MEDS: INSULIN LISPRO 1 UNIT/0.01 ML UNIT SQ SCH ×4 (08:06→20:47)
[2017-12-29] MEDS: LACTATED RINGERS 1,000 ML IV SCH ×4 (08:10→22:14)
--- NOTE | 2017-12-29 08:59 | XRay Report ---
HISTORY: Redness and soft tissue swelling following knee replacement three days ago FINDINGS: There is a well positioned total knee prosthesis. There is no reabsorption of bone around the hardware and no fracture or subluxation. There is soft tissue swelling anterior and medial to the knee. The swelling has increased. The gas in the soft tissues, seen immediately following surgery has nearly completely reabsorbed. IMPRESSION: Cellulitis and no evidence of osteomyelitis Interpreted and Authenticated by: Albino Erwin 12/29/17
[2017-12-29] MEDS: LOSARTAN 25 MG TABLET PO SCH (09:22)
--- NOTE | 2017-12-29 09:30 | XRay Report ---
HISTORY: Shortness of breath FINDINGS: Paralleling the pleural surface laterally in the left upper lobe there are thin vertically oriented linear opacities. These are probably scar. There is no evidence of pneumonia, mass or congestive heart failure. The heart is mildly enlarged. The aorta is mildly tortuous. No pleural effusion is present. No prior study is available for comparison. IMPRESSION: Small scar in the left upper lobe Mild cardiomegaly Interpreted and Authenticated by: Albino Erwin 12/29/17
[2017-12-29] MEDS: oxyCODONE HCL 5 MG TABLET PO PRN (09:32)
[2017-12-29] MEDS: ACETAMINOPHEN 325 MG TABLET PO PRN (09:32)
--- NOTE | 2017-12-29 09:37 | Cat Scan Report ---
CLINICAL INFORMATION: Hypoxia after knee replacement three days ago, evaluate for pulmonary emboli COMPARISON: None TECHNIQUE: Axial images obtained through the chest. intravenous contrast administration was administered, and scanning was performed during pulmonary arterial phase. Sagittally and coronally reformatted images were obtained. MIP reformatted images. FINDINGS: The pulmonary arteries are normal with no intraluminal filling defects. Moderate emphysema is present, predominantly involving the upper lobes. There are thin linear bands of scar tissue in both upper lobes with milder involvement in the lingula, right middle lobe and both lower lobes. No pleural effusion is present. There are no abnormally enlarged lymph nodes. The heart is mildly enlarged. Densely calcified plaques are present in the coronary arteries and there is also a moderate amount of plaque in the aorta. The aorta is normal in caliber. There is moderate generalized fatty infiltration the liver. The left lobe has a bulbous contour. There is a mass in the left adrenal gland. It Measures 3.0 x 3.5 cm. The right adrenal is normal. IMPRESSION: No evidence of pulmonary emboli Moderate emphysema Mild cardiomegaly with atherosclerotic coronary artery disease Left adrenal mass. Without prior studies I cannot determine if this is a benign neoplasm or metastasis. Upper abdominal MRI would be helpful for further evaluation. Tal Tucker and Dr. Mccarthy were called with the results Interpreted and Authenticated by: Albino Erwin 12/29/17
[2017-12-29] MEDS: HEPARIN 5,000 UNIT/ML VIAL SQ SCH ×2 (13:10→20:48)
[2017-12-29] MEDS: CYANOCOBALAMIN (VITAMIN B-12) 500 MCG TABLET PO SCH (13:10)
[2017-12-29] MEDS: DOCUSATE SODIUM 100 MG CAPSULE PO SCH ×2 (13:10→20:48)
[2017-12-29] MEDS: predniSONE 20 MG TABLET PO SCH (13:10)
[2017-12-29] MEDS: CEFEPIME 2 GM VIAL IV SCH (13:11)
--- NOTE | 2017-12-29 13:50 | Internal Med Progress Note ---
Medical - PN: Subj Patient information: Note initiated : 12/29/17 at 1:47 pm Service Date, if different from initiated Date: [] Patient: Fior Fontanez a 77 y/o F admitted on 12/28/17 for Right Knee Redness and swelling after total knee. Chief Complaint: [] Interval history: Ms. Fontanez is a 77 year old F with h/o DM, recent knee replacement surgery by Dr Barron, discahrged 2 days ago from this hospital, comes to the ER for evaluaton of right knee pain, drainage, subjective sensation of fever and chills. The patient notes that after surgery she was initially doing well, able to walk better, but today noticed some drainage coming from the right knee, initially was clear, but then bloodly, associated with knee swelling, subjective sensation of fevers. She also admits to having shortness of breath on exertion. She came to the ER for further evaluation. In the ER on the patient presented with low-grade temperature of 99.1, heart rate 84 blood pressure normal respirations normal she was saturating around 90- 92% needing 3 L of oxygen. Lab work showed elevated WBC count at 12.3 hemoglobin 10.7 MCV 79 platelets 389. Electrolytes stable creatinine 1.0 BNP elevated at 7360. ESR is 106. D-dimer was elevated at 3.05 lactic acid 1.2. Given elevation of d-dimer patient had a CT scan to rule out pulmonary embolism. There is no evidence of PE as per preliminary report. Patient does have significant emphysema. Dr. Cifuentes was contacted with regards to his knee swelling, Gram stain was negative for any organisms but did show some polymorphonuclear cells. It is my understanding that he said that the patient has likely cellulitis. However he was likely unaware of the patient's synovial fluid counts as they were not ordered. The patient has synovial fluid counts-14,329 WBCs. 94% neutrophils. Few CPPD crystals ABG that was done showed shows pH of 7.45 PCO2 39 PO2 50. Given hypoxia the patient was admitted to medicine for further management. 12/29 Patient seen and examined no acute overnight events, still requiring some oxygen but being weaned off rapidly. Dr. Cifuentes to evaluate the patient today. Microbiology negative growth so far. Continue vancomycin and cefepime for now. The patient has some constipation otherwise has no acute complaints Pertinent ROS: Denies headache, dizziness Denies chest pain, palpitations Denies cough or shortness of breath Denies abdominal pain, nausea or vomiting. - Constitutional Vitals: Vital Signs Temp Pulse Resp BP Pulse Ox 96.5 F L 81 16 145/71 91 12/29/17 11:21 12/29/17 11:21 12/29/17 11:21 12/29/17 11:21 12/29/17 11:40 Period Temp Pulse Resp BP Sys/Zamorano Pulse Ox Last 24 Hr 96.0 F-99.1 F 75-96 12-28 131-190/65-115 89-98 Intake and Output 12/28/17 12/29/17 12/29/17 21:59 05:59 13:59 Intake Total 1000 / 1000 100 / 100 1000 / 1000 Output Total 650 / 650 Balance 1000 / 1000 100 / 100 350 / 350 Weight 150 lb 155 lb 8 oz Intake & Output: Intake & Output 12/28/17 12/29/17 12/29/17 21:59 05:59 13:59 Intake Total 1000 / 1000 100 / 100 1000 / 1000 Output Total 650 / 650 Balance 1000 / 1000 100 / 100 350 / 350 Weight 150 lb 155 lb 8 oz Intake: IV 1000 / 1000 1000 / 1000 Sodium Chloride 0.9% 1,000 ml @ 1000 / 1000 Wide Open IV BOLUS ONE Rx#: [id number] Lactated Ringers 1,000 ml @ 100 1000 / 1000 mls/hr IV .Q10H ADDI Rx#: [id number] Oral 100 / 100 Output: Void Amount 650 / 650 Other: Urine Appearance Clear Clear Urine Color Bright Yellow Straw Urine Odor Normal # Voids 1 Exam: Constitutional; Afebrile, cooperative, alert, not in distress. Eyes- No icterus, , No periorbital swelling Ears- Ext ear normal, hearing normal to conversation. Neck- Midline trachea, supple Respiratory system: Air Entry equal on both sides, No crackles or wheezing, no rhonchi. CVS- Rate rhythm regular, S1,S2 heard, no gallop, no rub. 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 Medical - PN: Obj Da - Labs CBC & Chem 7: 12/29/17 04:30 12/29/17 04:30 Labs: Abnormal Lab Results 12/29/17 12/29/17 12/29/17 04:30 04:30 04:30 WBC RBC Hgb Hct MCV MCH RDW Gran % Lymph % (Auto) Gran # Lymph # (Auto) Faulkner # (Auto) ESR 107 H D-Dimer Carbon Dioxide 21 L Glucose 215 H Calcium 8.5 L Lactate Dehydrogenase 426 H C-Reactive Protein 18.7 H NT-Pro-B Natriuret Pep Albumin 2.8 L Albumin/Globulin Ratio 0.8 L Synovial Neutrophils 12/29/17 12/28/17 12/28/17 04:30 16:59 16:47 WBC RBC 3.63 L Hgb 9.3 L Hct 28.6 L MCV 78.8 L MCH 25.5 L RDW 16.5 H Gran % 93.7 H Lymph % (Auto) 4.1 L Gran # 9.9 H Lymph # (Auto) 0.4 L Faulkner # (Auto) ESR D-Dimer Carbon Dioxide Glucose Calcium Lactate Dehydrogenase C-Reactive Protein NT-Pro-B Natriuret Pep 7360.0 H Albumin Albumin/Globulin Ratio Synovial Neutrophils 94 H 12/28/17 12/28/17 12/28/17 16:47 16:47 16:40 WBC 12.3 H RBC Hgb 10.7 L Hct 32.6 L MCV 79.4 L MCH RDW 16.9 H Gran % 80.7 H Lymph % (Auto) 9.2 L Gran # 9.9 H Lymph # (Auto) 1.1 L Faulkner # (Auto) 1.2 H ESR 106 H D-Dimer 3.05 H Carbon Dioxide Glucose 111 H Calcium Lactate Dehydrogenase C-Reactive Protein NT-Pro-B Natriuret Pep Albumin Albumin/Globulin Ratio 0.9 L Synovial Neutrophils Meds: Medications Acetaminophen (Tylenol) 650 mg PO Q6HP PRN PRN Reason: PAIN/FEVER > 101 Last Admin: 12/29/17 09:32 Dose: 650 mg Albuterol/Ipratropium (Duoneb) 3 ml NEB Q4HRT [facility] Last Admin: 12/29/17 12:32 Dose: Not Given Bisacodyl (Dulcolax) 10 mg DE Q2-3DAYS PRN PRN Reason: Constipation Last Admin: 12/29/17 08:06 Dose: 10 mg Cefepime HCl (Maxipime) 2 gm IV DAILY [facility] Last Admin: 12/29/17 13:11 Dose: 2 gm Cyanocobalamin (Vitamin B-12) 1,000 mcg PO DAILY [facility] Last Admin: 12/29/17 13:10 Dose: 1,000 mcg Dextrose (Dextrose 50%) 0 ml IV UD PRN PRN Reason: Hypoglycemia Diagnostic Test (Pha) (Accu-Chek) 1 each FS ACHS [facility] Last Admin: 12/29/17 11:37 Dose: 1 each Docusate Sodium (Colace) 100 mg PO BID [facility] Last Admin: 12/29/17 13:10 Dose: 100 mg Glucose (Insta-Glucose) 15 gm PO PRN PRN PRN Reason: Hypoglycemia Heparin Sodium (Porcine) (Heparin) 5,000 unit SQ Q12 [facility] Last Admin: 12/29/17 13:10 Dose: 5,000 unit Hydromorphone HCl (Dilaudid) 0.5 mg IV Q2HP PRN PRN Reason: PAIN LEVEL > 6 Lactated Ringer's (Lactated Ringers) 1,000 mls @ 100 mls/hr IV .Q10H [facility] Last Admin: 12/29/17 11:38 Dose: 100 mls/hr Vancomycin HCl 1,000 mg/ (Sodium Chloride) 250 mls @ 250 mls/hr IV DAILY [facility] Insulin Human Lispro (Humalog) 0 unit SQ [facility]; Protocol Last Admin: 12/29/17 11:37 Dose: Not Given Losartan Potassium (Cozaar) 100 mg PO DAILY [facility] Last Admin: 12/29/17 09:22 Dose: 100 mg Magnesium Hydroxide (Milk Of Magnesia) 30 ml PO DAILYP PRN PRN Reason: Constipation Last Admin: 12/29/17 13:11 Dose: 30 ml Naloxone HCl (Narcan) 0.1 mg IV Q2MIN PRN PRN Reason: Opiate Reversal Ondansetron HCl (Zofran) 4 mg IV Q6HP PRN PRN Reason: Nausea And Vomiting Oxycodone HCl (Roxicodone) 5 mg PO Q4HP PRN PRN Reason: PAIN LEVEL 3-6 Last Admin: 12/29/17 09:32 Dose: 5 mg Prednisone (Prednisone) 40 mg PO QAC [facility] Last Admin: 12/29/17 13:10 Dose: 40 mg Senna (Senokot) 2 tab PO [facility] Last Admin: 12/28/17 23:38 Dose: 2 tab Sodium Biphosphate/Sodium Phosphate (Fleets Adult) 1 dose DE Q3-4DAYS PRN PRN Reason: Constipation Sodium Chloride (Saline Flush) 10 ml IV Q8 [facility] Last Admin: 12/29/17 13:21 Dose: Not Given Medical - PN: A/P - Time Spent With Patient Total time spent is greater than 50% in coordination of care (as documented) at patient's floor/unit and/or counseling patient: - Narrative A/P Narrative: A/P Septic Arthritis of prosthetic joint-follow ortho recs, await microbiology results, continue vanco and cefepime for now. Hypoxia-/ Emphysema/ Acute copd exacerbtion- treat with a short course of steroid and duonebs, pt responding well, no wheezing on exam Diabetes-hold oral diabetes meds sliding scale insulin for glucose control Hypertension-continue home blood pressure medications DVT prophylaxis-heparin subcutaneous Full code Carb consistent diet
[2017-12-29] MEDS: VANCOMYCIN 1,000 MG in 0.9 % SODIUM CHLORIDE 250 ML IV SCH (14:13)
[2017-12-29] MEDS: SENNOSIDES 1 TABLET PO SCH (20:48)
[2017-12-30] MEDS: LACTATED RINGERS 1,000 ML IV SCH ×2 (03:40→08:09)
[2017-12-30] MEDS: IPRATROPIUM/ALBUTEROL 3 ML AMPUL.NEB NEB SCH ×3 (03:40→11:06)
[2017-12-30] MEDS: 0.9 % SODIUM CHLORIDE 10 ML SYRINGE IV SCH (04:04)
[2017-12-30 05:45] LABS: Basophils # (Auto) 0 K/mcL (0.0-0.3); Basophils % (Auto) 0.2 % (0.0-2.0); Eosinophils # (Auto) 0 K/mcL (0.0-0.7); Eosinophils % (Auto) 0 % (0.0-7.0); Granulocytes % (Auto) 80.2 % (38.0-78.0); Lymphocytes % (Auto) 8.6 % (15.5-49.0); Mean Cell Volume 79.6 fL (80.0-100.0); Mean Corpuscular HGB Conc 32.4 g/dL (31.0-36.0); Mean Corpuscular Hemoglobin 25.8 pg (26.0-34.0); Monocytes # (Auto) 1.3 K/mcL (0.1-0.9); Platelet Count 363 K/mcL (140-440)
[2017-12-30 07:01] LABS: ALT/SGPT 24 U/l (0-40); Albumin 2.8 gm/dL (3.2-5.2); Albumin/Globulin Ratio 0.8 (1.0-2.3); Alkaline Phosphatase 90 U/L (39-117); Bilirubin,Direct < 0.2 mg/dL (0.0-0.3); Blood Urea Nitrogen 14 mg/dl (8-23); Gamma Glutamyl Transpeptidase 24 U/L (5-36); Uric Acid 3.8 mg/dL (2.5-8.0)
--- NOTE | 2017-12-30 07:47 | Consultation ---
DATE OF CONSULTATION: 12/29/2017 REASON FOR CONSULTATION: Post right total knee arthroplasty, now with some drainage, possible infection. This consultation is from the hospitalist. Thank you for this consultation. As you know, the patient started having some shortness of breath and fevers, was seen in the emergency room where there was a concern of infection because of the warmth and drainage from the knee, and the shortness of breath. The white count was elevated at the time of 12,000, saturating at 94% on the after being admitted. This dropped to 85% after walking today. She has no chest pain. She is feeling much better. Her fever has now subsided and there is less pain within the joint as well. She has no active chest pain. Activity does still produce some shortness of breath. She is on oxygen. PAST SURGICAL HISTORY: A week ago she had a total knee arthroplasty, actually on last Saturday, which was 4 days ago. With this backdrop she has otherwise been mobile. She did have a strenuous therapy session and she put on a sleeve when the drainage started. The drainage had actually stopped and the knee was dry at one point. With sensory and inactivity the knee has felt better and the swelling has diminished. PAST MEDICAL HISTORY: History of COPD after several years of smoking, quit smoking about 7 years ago. HOME MEDICATIONS: 1. Aspirin a day 325 mg b.i.d. 2. Vitamin B12. 3. Cozaar 100 mg p.o. b.i.d. 4. Metformin 500 mg q.a.m. 5. Oxycodone for pain. IMMUNIZATIONS: She is current on her shots. HOSPITAL COURSE: Here in the hospital she received an albuterol inhaler which seemed to help. She has continued with her medication. She did receive some heparin for possible prophylaxis against DVT or pulmonary embolus, which was not discovered or diagnosed but possible. She was given some prednisone to calm her down 40 mg q.a.m., which has made a difference. PHYSICAL EXAMINATION: GENERAL: A very pleasant female who is alert and oriented x3. Mood and affect are appropriate. Well-kempt and groomed. Her daughter is in the room. She is 77 years of age, 5'2'', 155 pounds, in no acute distress. She is actually feeling quite well. She is eating well. She has no chest pain. LUNGS: She is breathing without any difficulty or tachypnea. I did review her lungs; she has some distant breath sounds. HEART: Rate is tachycardic around 100. Pulses are strong upper and lower extremities. ABDOMEN: Soft, nontender. RIGHT KNEE: The right knee does show a healing midline incision with sadie with only a small amount of serosanguineous drainage, no purulence. The redness I would consider less than normal. IMPRESSION: 1. Right knee post-surgery. I would consider this more than an abnormal amount of swelling at 3 to 4 days. If this continued, we would wash this out prophylactically; however, at this point I do not see any active infection. 2. COPD exacerbation. 3. Possible overload of fluid from the surgery and possibility third pulmonary embolus undiagnosed. PLAN: She is being treated for all conditions. At this point, I will reevaluate the wound in the morning to see if she is a surgical candidate. She is currently only walking a few feet less than 50. She is not walking 100 to 200 feet, which we would like prior to being discharged, but she may need to be discharged on O2. At this point she looks much improved. We will check some labs in the morning as well as the wound. RBH:naren Job ID: [id number] Doc ID: [id number] Zechariah Peterson MD
[2017-12-30] MEDS: INSULIN LISPRO 1 UNIT/0.01 ML UNIT SQ SCH ×2 (07:56→11:39)
[2017-12-30] MEDS: oxyCODONE HCL 5 MG TABLET PO PRN (07:57)
[2017-12-30] MEDS: ACETAMINOPHEN 325 MG TABLET PO PRN (07:57)
[2017-12-30] MEDS: predniSONE 20 MG TABLET PO SCH (07:57)
[2017-12-30] MEDS: DOCUSATE SODIUM 100 MG CAPSULE PO SCH (10:10)
[2017-12-30] MEDS: LOSARTAN 25 MG TABLET PO SCH (10:10)
[2017-12-30] MEDS: CYANOCOBALAMIN (VITAMIN B-12) 500 MCG TABLET PO SCH (10:10)
[2017-12-30] MEDS: HEPARIN 5,000 UNIT/ML VIAL SQ SCH (10:10)
[2017-12-30] MEDS: CEFEPIME 2 GM VIAL IV SCH (10:11)
[2017-12-30] MEDS: VANCOMYCIN 1,000 MG in 0.9 % SODIUM CHLORIDE 250 ML IV SCH (11:35)
--- NOTE | 2017-12-30 13:23 | Discharge Summary ---
Medical - DS: Prov Patient information: Note initiated : 12/30/17 at 1:17 pm Service Date, if different from initiated Date: [] Patient: Fior Fontanez 77 y/o F admitted on 12/28/17 for Right Knee Redness and Swelling after Total Knee. Chief Complaint: [] Date of admission: 12/28/17 22:07 Discharge date: 12/30/17 Primary care physician: Jerry Mo Admitting clinician: Too Garcia Consults: 12/29/17 13:33 Consult to Physician [CONS] Routine Comment: Consulting Provider: Zechariah Peterson Reason For Exam: Physician to Consult Discharging clinician: Too Garcia Medical - DS: Meds - Discharge Medications Prescriptions: Cephalexin [Keflex] 500 mg PO QID #40 cap predniSONE [Prednisone] 40 mg PO QAMCC #6 tab Active and Home Medications: Home Medications Cyanocobalamin (Vitamin B-12) [Vitamin B-12] 1,000 mcg PO DAILY 12/18/17 [ History Confirmed 12/28/17 Last Taken 12/28/17 09:00] Losartan [Cozaar] 100 mg PO DAILY 12/18/17 [History Confirmed 12/28/17 Last Taken 12/28/17 09:00] metFORMIN [Glucophage] 500 mg PO QAMCC 12/18/17 [History Confirmed 12/28/17 Last Taken 12/28/17 09:00] Aspirin [Ecotrin] 325 mg PO BID #30 tab.ec 12/26/17 [Rx Confirmed 12/28/17 Last Taken 12/28/17 09:00] oxyCODONE HCL/ACETAMINOPHEN [Percocet 5-325 mg Tablet] 1 each PO Q4HP PRN [History Confirmed 12/28/17 Last Taken 12/28/17 15:15] Medical - DS: Hosp Hospital course: Ms. Fontanez is a 77 year old F with h/o DM, recent knee replacement surgery by Dr Barron, discharged 2 days ago from this hospital, comes to the ER for evaluation of right knee pain, drainage, subjective sensation of fever and chills. The patient notes that after surgery she was initially doing well, able to walk better, but today noticed some drainage coming from the right knee, initially was clear, but then bloodly, associated with knee swelling, subjective sensation of fevers. She also admits to having shortness of breath on exertion. She came to the ER for further evaluation. In the ER on the patient presented with low-grade temperature of 99.1, heart rate 84 blood pressure normal respirations normal she was saturating around 90- 92% needing 3 L of oxygen. Lab work showed elevated WBC count at 12.3 hemoglobin 10.7 MCV 79 platelets 389. Electrolytes stable creatinine 1.0 BNP elevated at 7360. ESR is 106. D-dimer was elevated at 3.05 lactic acid 1.2. Given elevation of d-dimer patient had a CT scan to rule out pulmonary embolism. There is no evidence of PE as per preliminary report. Patient does have significant emphysema. Dr. Cifuentes was contacted with regards to his knee swelling, Gram stain was negative for any organisms but did show some polymorphonuclear cells. It is my understanding that he said that the patient has likely cellulitis. However he was likely unaware of the patient's synovial fluid counts as they were not ordered. The patient has synovial fluid counts-14,329 WBCs. 94% neutrophils. Few CPPD crystals ABG that was done showed shows pH of 7.45 PCO2 39 PO2 50. Given hypoxia the patient was admitted to medicine for further management. Septic arthritis- The patient was started on vancomycin and cefepime, the patient culture are negative growth. Patient has high esr, neutrophils [place] 95% [place] [address]. Patient is just post op day 5, seen by ortho who did not feel that the patient has a septic joint. They have advised po keflexa and follow up with Dr Barron in a week. At this time, given this is a surgical issue will follow their recommendations. Would recommend ortho consider ID consult if there is any doubt in future regarding patient status. Hypoxia- patient has emphysema, severe, needed oxygen on presentation, treated with steroids and neublizers, improved, CT is neg for PE, COPD - patient has COPD as per CT, has h/o smoking. She is not wheezing at the time of discharge and is asympmatic Oxygen saturation on room air is 94% at rest Oxygen saturation on on room air is 84-86% on ambulation. Oxygen saturation with 2 L oxygen with ambulation is 92% Oxygen saturation during sleep is 84-86% on RA which corrects to > 90% on 2 L I will discharge patient on home oxygen with 2 L on ambulation and during sleep. 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 THe patient will follow up with the PCP and have this investigated further. Discharge diagnosis: Joint swelling, COPD - Time Spent with Patient Total time spent providing and/or coordinating discharge services: Greater than 30 minutes Medical - DS: Exam - Constitutional Vitals: Vital Signs Temp Pulse Pulse Resp BP Pulse Ox 12/30/17 11:13 78 16 12/30/17 11:06 94 12/30/17 10:58 98.4 F 20 149/90 94 12/30/17 07:45 85 16 95 12/30/17 07:33 85 16 12/30/17 07:29 98 12/30/17 07:28 98 12/30/17 06:34 98.5 F 20 156/89 93 12/30/17 03:41 98.7 F 80 20 141/83 93 12/29/17 23:36 98.2 F 71 16 164/86 97 12/29/17 22:20 88 16 12/29/17 20:00 97.8 F 88 16 149/83 94 12/29/17 19:14 92 12/29/17 19:02 87 16 89 L 12/29/17 18:59 83 16 12/29/17 15:50 80 16 12/29/17 15:38 97.9 F 83 14 175/84 92 12/29/17 15:25 112 H 85 L 12/29/17 14:09 94 Intake and Output 12/29/17 12/30/17 12/30/17 21:59 05:59 13:59 Intake Total 2290 / 2290 700 / 700 1000 / 1000 Output Total 1200 / 1200 450 / 450 600 / 600 Balance 1090 / 1090 250 / 250 400 / 400 Intake: IV 1250 / 1250 1000 / 1000 Lactated Ringers 1,000 ml @ 100 1000 / 1000 1000 / 1000 mls/hr IV .Q10H [facility] Rx#: [id number] Vancomycin 1,000 mg In Sodium 250 / 250 Chloride 0.9% 250 ml @ 250 mls/ hr IV DAILY [facility] Rx#:[id number] Oral 1040 / 1040 700 / 700 Output: Void Amount 1200 / 1200 450 / 450 600 / 600 Other: Meal Dinner Percent of Meal Consumed 100% Feeding Ability Independent Urine Appearance Clear Clear Urine Color Bright Yellow Pale Bright Yellow Urine Odor Normal Normal Normal Stool Size Small Stool Color Brown Stool Consistency Formed # Voids 1 1 Weight 156 lb 8 oz Additional comments: Constitutional; Afebrile, cooperative, alert, not in distress. Eyes- No icterus, , No periorbital swelling Ears- Ext ear normal, hearing normal to conversation. Neck- Midline trachea, supple Respiratory system: Air Entry equal on both sides, No crackles or wheezing, no rhonchi. CVS- Rate rhythm regular, S1,S2 heard, no gallop, no rub. Abdomen- Soft nontender abdomen, no organomegaly, no tenderness, no guarding or rigidity, [employer]- AOOx3, moving all extremities, no gross focal deficit noted. Medical - DS: Data Labs on day of discharge: Labs from last 24 hours 12/30/17 12/30/17 12/30/17 08:15 04:25 04:20 WBC 11.6 H RBC 3.40 L Hgb 8.8 L Hct 27.1 L MCV 79.6 L MCH 25.8 L MCHC 32.4 RDW 17.0 H Plt Count 363 MPV 7.9 Gran % 80.2 H Lymph % (Auto) 8.6 L [place] % (Auto) 11.0 Eos % (Auto) 0 Baso % (Auto) 0.2 Gran # 9.3 H Lymph # (Auto) 1.0 L [place] # (Auto) 1.3 H Eos # (Auto) 0 Baso # (Auto) 0 Sodium 141 Potassium 4.1 Chloride 103 Carbon Dioxide 23 Anion Gap 15.0 BUN 14 Creatinine 0.9 GFR Calculation 63 Glucose 139 H Uric Acid 3.8 Calcium 9.0 Phosphorus 2.8 Magnesium 2.1 Total Bilirubin 0.2 Direct Bilirubin < 0.2 GGT 24 AST 31 ALT 24 Alkaline Phosphatase 90 Lactate Dehydrogenase 332 H Total Protein 6.2 Albumin 2.8 L Globulin 3.4 Albumin/Globulin Ratio 0.8 L Triglycerides 103 Vancomycin Trough 8.7 Preliminary micro results at discharge 12/28/17 16:47 Blood Culture - Preliminary Blood 12/28/17 16:34 Blood Culture - Preliminary Blood Medical - DS: A/P - Patient/Caregiver Discharge Instructions Activity: increase activity as tolerated Diet: Consistent Carbohydrate Additional Instructions: Daily dressing changes with Silvasorb and gauze. Secure with JANETH wrap. Keep orthopedic follow up appointment as previously scheduled with Dr. Barron. take antibiotics as prescribed. Please follow up with PCP in 1-2 weeks. 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 Please talk with yoru PCP to check and make sure you hemoglobin is stable. Use 2 L oxygen during ambulation and at sleep. Go to the ER if worsening shortness of breath, fever, chills or any other acute concern. - Follow up Plan Follow up with: Tobias Barron MD [Physician] - (Keep orthopedic follow up appointment as previously scheduled.) Jerry Mo DO [Primary Care Provider] - 12/31/17 2:20 pm Disposition: Home, Self-Care Prognosis: Fair Rehab Potential: Fair I certify that the patient requires SNF services: No Overall status at discharge: patient is progressing back to baseline
== END 2017-12-30 14:30 | disposition home or self-care (01) | DRG 560 ==
LOC: ED 15:48 → MEDSUR 21:58
PROVIDERS: ADMIT Internal Medicine; ATTEND Internal Medicine
CPT/HCPCS: 94761; 97161; 97166; 99231; A6248; J0692; J0696; J1644; J1817; J2930; J3370; J7030; J7050; J7120; J7620; J7620-GY; Q9967